=== PATIENT | male | born 1975 | race Caucasian/White ===

== ENCOUNTER 2016-11-10 08:48 | Emergency (ER) | payer OTHER ==
[~2016-11-10] VITALS: Ht 172.7 cm; Wt 74.4 kg
[~2016-11-10 08:48] MED LIST: CLONAZEPAM1 MG PO; FLOMAX0.4 M1 PO; IBUPROFEN800 M1 PO; KETOROLAC TROME10 M1 PO; NEXIUM 40MG40 MG PO; PERCOCET 5-3251 EACH PO; TYLENOL WITH C1 EACH PO; ZOFRAN4 M2 PO
--- NOTE | 2016-11-10 09:19 | ED GENERAL ADULT ---
History of Present Illness General Chief Complaint: General Adult Stated Complaint: RECENTLY PUT ON XARELTO HIT HEAD THIS MORN Source: patient Exam Limitations: no limitations Vital Signs & Intake/Output Vital Signs & Intake/Output Vital Signs Date Time Temp Pulse Resp B/P Pulse O2 O2 Flow FiO2 Ox Delivery Rate 11/10 0957 98.0 70 18 138/89 96 Room Air 11/10 0855 97.0 66 18 139/87 99 Room Air Allergies Coded Allergies: cephalexin (Mild, RASH 02/20/16) Reconcile Medications Clonazepam 1 MG TABLET 1 TAB PO QPM PRN ANXIETY (Reported) Esomeprazole (Nexium) 40 MG CAPSULE.DR 1 CAP PO DAILY GI (Reported) Ibuprofen 800 MG TABLET 1 TAB PO Q6PRN PRN pain Ketorolac Tromethamine 10 MG TABLET 1 TAB PO TID PRN PAIN Ondansetron HCl (Zofran) 4 MG TABLET 1 TAB PO Q6-8P PRN NAUSEA Ondansetron HCl (Zofran) 4 MG TABLET 1 TAB PO Q6-8P PRN NAUSEA Oxycodone HCl/Acetaminophen (Percocet 5-325 MG Tablet) 1 EACH TABLET 1-2 TAB PO Q6P PRN severe pain Tamsulosin HCl (Flomax) 0.4 MG CAP.ER.24H 1 CAP PO DAILY kidney stone Tylenol With Codeine (Tylenol With Codeine #3 Tablet) 300 MG-30 MG TABLET 1 TAB PO BIDP PRN PAIN Triage Note: C/O SLIGHT DIZZINESS SINCE THIS AM, STATES HE SCRAPED THE TOP OF HIS HEAD ON A CLOTH CAR ROOF PRIOR. STARTED ON XARALTO 6 DAYS AGO FOR R SIDED PE. Triage Nurses Notes Reviewed? yes HPI: Patient is a 41 year old male presents complaining of head injury. Patient was getting out of his car when he struck the top of his head. Injury occurred just prior to arrival. Headache is 4/10, bandlike headache. Patient is on Xarelto, concerned for internal bleeding. Patient denies loss of consciousness, numbness , weakness, vomiting. Past History Travel History Traveled to [place] past 21 day No Medical History Any Pertinent Medical History? 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 No Review of Systems Review of Systems Constitutional: Denies: chills, fever. EENTM: Denies: blurred vision, visual changes, eye pain. Respiratory: Reports: no symptoms. Cardiovascular: Denies: syncope. GI: Denies: abdominal pain, vomiting. Genitourinary: Reports: no symptoms. Musculoskeletal: Denies: back pain, neck pain. Skin: Reports: no symptoms. Neurological/Psychological: Reports: see HPI, anxiety, headache. Denies: numbness, paresthesia, unable to move lower ext, unable to move upper ext. Hematologic/Endocrine: Denies: bleeding. Immunologic/Allergic: Denies: splenectomy. Physical Exam Physical Exam General Appearance: well developed/nourished, alert, awake Head: 2 cm abrasion to the superior scalp. Mild tenderness. No palpable step- offs or deformities. Eyes: Bilateral: normal appearance, PERRL, EOMI. Ears, Nose, Throat: hearing grossly normal Neck: normal inspection, supple, full range of motion, no midline tenderness Respiratory: normal breath sounds, chest non-tender, no respiratory distress, lungs clear Cardiovascular: regular rate/rhythm Back: normal inspection, normal range of motion Extremities: normal inspection, normal capillary refill, normal range of motion, no edema Neurologic/Psych: no motor/sensory deficits, awake, alert, oriented x 3, normal gait, normal mood/affect, circuit rider II-XII nml as tested Skin: normal color, warm/dry Core Measures ACS in differential dx? No CVA/TIA Diagnosis: No Severe Sepsis Present: No Septic Shock Present: No Progress Differential Diagnoses I considered the following diagnoses in my evaluation of the patient: Head contusion, concussion, intracranial bleed, skull fracture Plan of Care: Orders Procedure Date/time Status Telemetry/Business Process Lead 11/10 0823 Active EKG 11/10 0857 Active 11/10/2016 10:16:12 AM: Results of head CT scan discussed with patient. No acute neurologic abnormalities. Patient appears stable for discharge. (JOSE CRUZ,ADI) Diagnostic Imaging: Viewed by Me: CT Scan. Discussed w/RAD: CT Scan. Radiology Impression: PATIENT: CATRACHO DIAZ PRESENT AGE: 41 PATIENT ACCOUNT NO: [id number] : 75 LOCATION: [facility] ORDERING PHYSICIAN: ADI CRUZ SERVICE DATE: 11/10/16 EXAM TYPE: CAT - CT HEAD WO IV CONTRAST EXAMINATION: CT HEAD WITHOUT CONTRAST CLINICAL INFORMATION: Struck head, on Xarelto. Headache and dizziness. Assess for bleed. COMPARISON: CT scan of the head 01/17/2011. TECHNIQUE: Contiguous axial imaging was performed from the skull base to vertex without intravenous administration of contrast. DLP: 600.71 mGy-cm FINDINGS: There is no evidence of acute intracranial hemorrhage or territorial infarction. No abnormal mass effect or midline shift is seen. Florian to white matter differentiation is well preserved. No extra-axial fluid collections are identified. The ventricles are normal in size. There is no abnormal attenuation within the brain parenchyma. The osseous structures and soft tissues are normal. The mastoid air cells and visualized portions of the paranasal sinuses are well aerated. The nasal septum is deviated to the right and there is a right-sided bony nasal septal spur. IMPRESSION: 1. There are no acute bleeds or infarcts. 2. There are no fractures or large scalp contusions. 3. The mastoid air cells and visualized paranasal sinuses are well-aerated. DICTATED BY: LUIGI MCNAMARA MD DATE/TIME DICTATED:1001 DIE CLEANER:SUNIL DATE/TIME TRANSCRIBED:11/10/161001 CONFIDENTIAL, DO NOT COPY WITHOUT APPROPRIATE AUTHORIZATION. <Electronically signed in Other Vendor System> SIGNED BY: LUIGI MCNAMARA MD 11/10/16 1009 Initial ED EKG: sinus bradycardia 46 bpm normal axis, normal intervals, no acute ST/T-wave abnormalities. Slower rate than previous EKG Rhythm Strip: normal sinus rhythm (rate in the 60s) Departure Departure Time of Disposition: 1014 Disposition: HOME OR SELF CARE Condition: Stable Clinical Impression Primary Impression: Head contusion Qualifiers: Encounter type: initial encounter Contusion of head detail: scalp Qualified Code: S00.03XA - Contusion of scalp, initial encounter Referrals: ELISHA SAVAGE MD (PCP/Family) Additional Instructions: Take Tylenol as directed for pain. Return to the emergency department if confusion, lethargy, vomiting, numbness, weakness, pain significantly worsening, or worsening of symptoms. Departure Forms: Customer Survey General Discharge Information Critical Care Note Critical Care Note Critical Care Time: non-applicable
[2016-11-10 09:57] VITALS: BP 138/89
--- NOTE | 2016-11-10 10:09 | CT SCAN REPORT ---
EXAMINATION: CT HEAD WITHOUT CONTRAST CLINICAL INFORMATION: Struck head, on Xarelto. Headache and dizziness. Assess for bleed. COMPARISON: CT scan of the head 01/17/2011. TECHNIQUE: Contiguous axial imaging was performed from the skull base to vertex without intravenous administration of contrast. DLP: 600.71 mGy-cm FINDINGS: There is no evidence of acute intracranial hemorrhage or territorial infarction. No abnormal mass effect or midline shift is seen. Florian to white matter differentiation is well preserved. No extra-axial fluid collections are identified. The ventricles are normal in size. There is no abnormal attenuation within the brain parenchyma. The osseous structures and soft tissues are normal. The mastoid air cells and visualized portions of the paranasal sinuses are well aerated. The nasal septum is deviated to the right and there is a right-sided bony nasal septal spur. IMPRESSION: 1. There are no acute bleeds or infarcts. 2. There are no fractures or large scalp contusions. 3. The mastoid air cells and visualized paranasal sinuses are well-aerated.
== END 2016-11-10 10:21 ==
LOC: ERH 08:48
DX: S00.93XA Contusion of unspecified part of head, initial encounter (principal); W22.8XXA Striking against or struck by other objects, initial encounter; Y92.9 Unspecified place or not applicable; Y93.9 Activity, unspecified
CPT/HCPCS: 93005; 93010

== ENCOUNTER 2016-11-14 19:04 | Emergency (ER) | payer OTHER ==
[~2016-11-14] VITALS: Ht 172.7 cm; Wt 74.4 kg
[2016-11-14 19:11] VITALS: BP 125/81
--- NOTE | 2016-11-14 19:31 | ED HEADACHE COMPLAINT ---
History of Present Illness General Chief Complaint: Headache Stated Complaint: CHILEL, IS ON BLOOD THINNER Source: patient, old records Exam Limitations: no limitations Vital Signs & Intake/Output Vital Signs & Intake/Output ED Intake and Output 11/15 0000 11/14 1200 Intake Total Output Total Balance Patient 164 lb Weight Allergies Coded Allergies: cephalexin (Mild, RASH 02/20/16) Reconcile Medications Clonazepam 1 MG TABLET 1 TAB PO QPM PRN ANXIETY (Reported) Esomeprazole (Nexium) 40 MG CAPSULE.DR 1 CAP PO DAILY GI (Reported) Ibuprofen 800 MG TABLET 1 TAB PO Q6PRN PRN pain Ketorolac Tromethamine 10 MG TABLET 1 TAB PO TID PRN PAIN Ondansetron HCl (Zofran) 4 MG TABLET 1 TAB PO Q6-8P PRN NAUSEA Ondansetron HCl (Zofran) 4 MG TABLET 1 TAB PO Q6-8P PRN NAUSEA Oxycodone HCl/Acetaminophen (Percocet 5-325 MG Tablet) 1 EACH TABLET 1-2 TAB PO Q6P PRN severe pain Tamsulosin HCl (Flomax) 0.4 MG CAP.ER.24H 1 CAP PO DAILY kidney stone Tylenol With Codeine (Tylenol With Codeine #3 Tablet) 300 MG-30 MG TABLET 1 TAB PO BIDP PRN PAIN Triage Note: PT STATES THAT HE IS ON THINNERS AND THAT HE BUMPED THE TOP OF HIS HEAD ON DECK, DENIES LOC, STATES THAT HE HAS 3/10 PAIN TO AREA. NO LACERATION NOTED Triage Nurses Notes Reviewed? yes Onset: Abrupt Duration: hour(s): (1.5) Timing: single episode today Quality/Severity: mild Head Injury Location: TOP OF HEAD No Modifying Factors: none HPI: 41-year-old male presents to the ER with chief complaint of right-sided headache. He states he was on his deck and had a baseball And Was Bending over and As He Was Standing up He Hit the Side Rail. Denies Hitting His Head Hard. No Loss of Consciousness. Denies Any Dizziness Nausea Vomiting or Confusion. He States Because He Is on xarelto and he didn't Know He Should Come into the Hospital. He Was Seen Here on Wednesday after He Had His Head on the Side of the Car Door and Had a CAT Scan Which Was Negative That day. He States He Was Just Concerned and Wanted to Make Sure Everything Was Okay. No Other Symptoms. Past History Travel History Traveled to [place] past 21 day No Medical History Any Pertinent Medical History? 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 No Review of Systems Review of Systems Constitutional: Denies: chills, fever. Eyes: Denies: blurred vision, decreased acuity. Ears, Nose, Throat, Mouth: Reports: no symptoms. Respiratory: Denies: cough, short of breath. Cardiovascular: Denies: chest pain. Gastrointestinal/Abdominal: Reports: no symptoms. Genitourinary: Reports: no symptoms. Musculoskeletal: Reports: no symptoms. Skin: Reports: no symptoms. Neurological/Psychological: Reports: anxiety, headache. Denies: ataxia. Hematologic/Endocrine: Denies: bruising, bleeding, polyuria, other. Endocrine: Reports: no symptoms. Immunologic/Allergic: Denies: splenectomy. All Other Systems: Reviewed and Negative Physical Exam Physical Exam General Appearance: well developed/nourished, alert, awake, anxious, mild distress Head: atraumatic, normal appearance, NO BRUISING, STEP-OFF, CREPITUS Eyes: Bilateral: normal appearance, PERRL, EOMI. Ears, Nose, Throat: normal pharynx, normal ENT inspection, hearing grossly normal Neck: normal inspection, supple, full range of motion Respiratory: normal breath sounds, chest non-tender, no respiratory distress Cardiovascular: regular rate/rhythm Gastrointestinal: normal bowel sounds, soft, non-tender Psychiatric: awake, alert, oriented x 3 Cranial Nerves: normal hearing, normal speech, PERRL Coordination/Gait: normal finger to nose, normal gait Motor/Sensory: no motor/sensory deficits Core Measures Severe Sepsis Present: No Septic Shock Present: No Progress Differential Diagnosis: carotid dissection (HEAD J), HEAD CONTUSION, ANXIETY Plan of Care: Neuro examination intact. Patient given reassurance. No indication for imaging at this time. Head injury instructions given. Departure Departure Time of Disposition: 1936 Disposition: HOME OR SELF CARE Condition: Stable Clinical Impression Primary Impression: Headache Referrals: ELISHA SAVAGE MD (PCP/Family) Additional Instructions: You may take Tylenol as needed for headache. Please make note of the symptoms with which to return on your discharge instructions. Departure Forms: Customer Survey General Discharge Information
== END 2016-11-14 19:44 ==
LOC: ERH 19:04
DX: R51 Headache (principal)

== ENCOUNTER 2016-11-27 17:24 | Emergency (ER) | payer OTHER ==
[2016-11-27 18:11] VITALS: BP 129/81
--- NOTE | 2016-11-27 19:04 | ULTRASOUND REPORT ---
EXAMINATION: US TRIPLEX OF LOWER EXTREMITIES, BILATERAL CLINICAL INFORMATION: Bilateral lower extremity pain. COMPARISON: None TECHNIQUE: Color-flow triplex imaging with spectral analysis and compression Doppler were performed on the lower extremities. FINDINGS: Respiratory variation, normal compression and augmented flow are noted throughout the lower extremities. The visualized common femoral vein, superficial femoral vein, profunda femoral vein, popliteal vein and midcalf peroneal and posterior tibial venous segments show no evidence of deep venous thrombosis. There is no Joiner's cyst. IMPRESSION: Normal triplex scan without evidence of deep venous thrombosis involving the lower extremities.
--- NOTE | 2016-11-27 19:36 | ED UPPER/LOWER EXTREMITY COMPL ---
History of Present Illness General Chief Complaint: Lower Extremity Problems Stated Complaint: L CALF PAIN Source: patient Exam Limitations: no limitations Vital Signs & Intake/Output Vital Signs & Intake/Output Vital Signs Date Time Temp Pulse Resp B/P B/P Pulse O2 O2 Flow FiO2 Mean Ox Delivery Rate 11/27 1939 56 18 99 Room Air 11/27 1811 98.8 58 16 129/81 97 Room Air Allergies Coded Allergies: cephalexin (Mild, RASH 02/20/16) Reconcile Medications Clonazepam 1 MG TABLET 1 TAB PO QPM PRN ANXIETY (Reported) Esomeprazole (Nexium) 40 MG CAPSULE.DR 1 CAP PO DAILY GI (Reported) Ibuprofen 800 MG TABLET 1 TAB PO Q6PRN PRN pain Ketorolac Tromethamine 10 MG TABLET 1 TAB PO TID PRN PAIN Ondansetron HCl (Zofran) 4 MG TABLET 1 TAB PO Q6-8P PRN NAUSEA Ondansetron HCl (Zofran) 4 MG TABLET 1 TAB PO Q6-8P PRN NAUSEA Oxycodone HCl/Acetaminophen (Percocet 5-325 MG Tablet) 1 EACH TABLET 1-2 TAB PO Q6P PRN severe pain Tamsulosin HCl (Flomax) 0.4 MG CAP.ER.24H 1 CAP PO DAILY kidney stone Tylenol With Codeine (Tylenol With Codeine #3 Tablet) 300 MG-30 MG TABLET 1 TAB PO BIDP PRN PAIN Triage Note: TRIAGE: ON XARELTO 20MG FOR PE X1 MONTH. NEW ONSET L CALF PAIN SINCE YESTERDAY. NO REDNESS OR SWELLING NOTED. PT REPORTS PAIN WITH WALKING, PAIN 4/10. HAD BILAT LOWER EXT U/S TWO WEEKS AGO WITHOUT EVIDENCE OF DVT. DENIES SOB. DENIES IVC FILTER. PT ASSISTED TO WHEELCHAIR AND U/S ORDERED PER NANCY VENTURA Triage Nurses Notes Reviewed? yes Onset: Abrupt Duration: hour(s): Timing: recent history Severity: mild Pain/Injury Location: Left: Leg. Method of Injury: unknown Modifying Factors: Worsens With: movement. Associated Symptoms: left calf pain. No swelling HPI: 41 yo gentleman h/o PE diagnosed 1 month ago, on Xarelto, presents with left calf pain for the past 1-2 days. "It hurts when I press on the muscle." He notes no significant swelling, no chest discomfort or dyspnea. Past History Travel History Traveled to [place] past 21 day No Medical History Any Pertinent Medical History? 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 No Review of Systems Review of Systems Constitutional: Reports: no symptoms. EENTM: Reports: no symptoms. Respiratory: Reports: no symptoms. Cardiovascular: Reports: no symptoms. Gastrointestinal/Abdominal: Reports: no symptoms. Genitourinary: Reports: no symptoms. Musculoskeletal: Reports: no symptoms. Skin: Reports: no symptoms. Neurological/Psychological: Reports: no symptoms. Hematologic/Endocrine: Reports: no symptoms. Immunological: Reports: no symptoms. All Other Systems: Reviewed and Negative Physical Exam Physical Exam General Appearance: well developed/nourished, mild distress Head: atraumatic Eyes: Bilateral: PERRL, EOMI. Ears, Nose, Throat: normal pharynx, normal ENT inspection, hearing grossly normal Neck: normal inspection, supple Cardiovascular/Respiratory: regular rate/rhythm Back: normal inspection Leg Left: left calf with mild tenderness in the proximal muscle. No swelling. No edema. No sign of infection or inflammation. Both legs are symmetrical. Normal distal pulses. Light touch and range of motion is intact bilaterally. Skin: intact, normal color, warm/dry Lymphatic: no anterior cervical diamond Progress Differential Diagnosis: DVT versus muscle strain versus other Plan of Care: Ultrasound negative for DVT. My clinical suspicion is low for DVT given that he is artery on Xarelto. Discussed at length with patient. Patient safe to follow -up with pmd Diagnostic Imaging: Viewed by Me: Ultrasound. Discussed w/RAD: Ultrasound. Radiology Impression: Doppler ultrasound-no DVT, full report below Comments: PATIENT: CATRACHO DIAZ PRESENT AGE: 41 PATIENT ACCOUNT NO: [id number] : 75 LOCATION: [facility] ORDERING PHYSICIAN: UMBERTO SMITH DO (TBS) SERVICE DATE: 11/27/16 EXAM TYPE: US - US-EXT BILAT VENOUS DOPPLER EXAMINATION: US TRIPLEX OF LOWER EXTREMITIES, BILATERAL CLINICAL INFORMATION: Bilateral lower extremity pain. COMPARISON: None TECHNIQUE: Color-flow triplex imaging with spectral analysis and compression Doppler were performed on the lower extremities. FINDINGS: Respiratory variation, normal compression and augmented flow are noted throughout the lower extremities. The visualized common femoral vein, superficial femoral vein, profunda femoral vein, popliteal vein and midcalf peroneal and posterior tibial venous segments show no evidence of deep venous thrombosis. There is no Joiner's cyst. IMPRESSION: Normal triplex scan without evidence of deep venous thrombosis involving the lower extremities. DICTATED BY: ERICK BALLARD MD DATE/TIME DICTATED:11/27/161899 ENGRAVER:SUNIL DATE/TIME TRANSCRIBED:11/27/161899 CONFIDENTIAL, DO NOT COPY WITHOUT APPROPRIATE AUTHORIZATION. <Electronically signed in Other Vendor System> SIGNED BY: ERICK BALLARD MD 11/27/161903 Departure Departure Disposition: HOME OR SELF CARE Condition: Stable Clinical Impression Primary Impression: Pain of left calf Referrals: ELISHA SAVAGE MD (PCP/Family) Additional Instructions: follow up with your primary care doctor on wednesday Departure Forms: Customer Survey General Discharge Information
== END 2016-11-27 19:39 ==
LOC: ERH 17:24
DX: M79.662 Pain in left lower leg (principal)
CPT/HCPCS: 93970

== ENCOUNTER 2016-12-10 17:28 | Emergency (ER) | payer OTHER ==
[~2016-12-10] VITALS: Ht 170.2 cm; Wt 76.2 kg
[2016-12-10 17:30] VITALS: BP 145/98
== END 2016-12-10 19:57 | disposition admitted as inpatient to this hospital (09) ==
LOC: ERH 17:28
DX: M79.661 Pain in right lower leg (principal)

== ENCOUNTER 2016-12-13 11:17 | Emergency (ER) | payer OTHER ==
[~2016-12-13] VITALS: Ht 172.7 cm; Wt 76.2 kg
--- NOTE | 2016-12-13 12:10 | ED GENERAL ADULT ---
History of Present Illness General Chief Complaint: General Adult Stated Complaint: LOWER LEG PAIN BEING TREATED FOR PE Source: patient, old records Exam Limitations: no limitations Vital Signs & Intake/Output Vital Signs & Intake/Output Vital Signs Date Time Temp Pulse Resp B/P B/P Pulse O2 O2 Flow FiO2 Mean Ox Delivery Rate 12/13 1334 98.2 70 18 118/78 100 Room Air 12/13 1121 98.4 69 16 119/81 99 Room Air Allergies Coded Allergies: cephalexin (Mild, RASH 02/20/16) Reconcile Medications Clonazepam 1 MG TABLET 1 TAB PO QPM PRN ANXIETY (Reported) Esomeprazole (Nexium) 40 MG CAPSULE.DR 1 CAP PO DAILY GI (Reported) Ibuprofen 800 MG TABLET 1 TAB PO Q6PRN PRN pain Ketorolac Tromethamine 10 MG TABLET 1 TAB PO TID PRN PAIN Ondansetron HCl (Zofran) 4 MG TABLET 1 TAB PO Q6-8P PRN NAUSEA Ondansetron HCl (Zofran) 4 MG TABLET 1 TAB PO Q6-8P PRN NAUSEA Oxycodone HCl/Acetaminophen (Percocet 5-325 MG Tablet) 1 EACH TABLET 1-2 TAB PO Q6P PRN severe pain Ranitidine HCl (Zantac) 150 MG TABLET 1 TAB PO BID acid reflux Tamsulosin HCl (Flomax) 0.4 MG CAP.ER.24H 1 CAP PO DAILY kidney stone Tylenol With Codeine (Tylenol With Codeine #3 Tablet) 300 MG-30 MG TABLET 1 TAB PO BIDP PRN PAIN Triage Note: PT HAS BEEN TREATED FOR PE FOR MONTH STATES HE HAS WOULD LIKE HIS RIGHT LOWER EXT. LOOKED AT. PT HAVING BACK PAIN UPPER GI PAIN. PT IS CURRENTLY TAKING XERALTO. Triage Nurses Notes Reviewed? yes Onset: Abrupt Duration: week(s):, intermittent Timing: recent history Injury Environment: home No Modifying Factors: none HPI: 41-year-old male comes into emergency room for multiple complaints. Patient reports that he is here primarily today for abdominal pain and right calf pain. Patient was started on Xarelto for a pulmonary embolism little over a month ago. He has a history of gastritis and ulcers. Patient has been on omeprazole for 8 -9 years. He reports he's been experiencing epigastric pain. Sharp. Associated nausea. Radiates up into his chest into his back. He denies any black stools or blood in his stool that he notices. Denies any fever or chills. Patient also complains of right calf pain. He reports that he had normal ultrasounds of his bilateral lower extremities after he was diagnosed with the blood clot in his lung. He denies any other associated symptoms. Denies any other traumas. (LING CHÁVEZ) Past History Travel History Traveled to [place] past 21 day No Medical History Any Pertinent Medical History? see below for history Neurological: NONE EENT: NONE Cardiovascular: bradycardia Respiratory: pulmonary embolism, pneumonia Gastrointestinal: GERD, irritable bowel syndrome, peptic ulcer disease Hepatic: "DYSKINESIA GALLBLADDER" Renal: nephrolithiasis Musculoskeletal: NONE Psychiatric: NONE Endocrine: NONE Blood Disorders: NONE Cancer(s): NONE LEVERMAN/Reproductive: NONE Surgical History Surgical History: non-contributory Psychosocial History What is your primary language Persian Tobacco Use: Never used ETOH Use: denies use Illicit Drug Use: denies illicit drug use Family History Family History, If Any: Relation not specified for: DVT FHx: pulmonary embolism Hx Contributory? No (LING CHÁVEZ) Review of Systems Review of Systems Constitutional: Reports: no symptoms. EENTM: Reports: no symptoms. Respiratory: Reports: no symptoms. Cardiovascular: Reports: no symptoms. GI: Reports: see HPI. Genitourinary: Reports: no symptoms. Musculoskeletal: Reports: see HPI. Skin: Reports: no symptoms. Neurological/Psychological: Reports: no symptoms. Hematologic/Endocrine: Reports: no symptoms. Immunologic/Allergic: Reports: no symptoms. All Other Systems: Reviewed and Negative (LING CHÁVEZ) Physical Exam Physical Exam General Appearance: well developed/nourished, alert, awake, anxious Head: atraumatic, normal appearance Eyes: Bilateral: normal appearance, EOMI. Ears, Nose, Throat: normal pharynx, normal ENT inspection, hearing grossly normal Neck: normal inspection, full range of motion Respiratory: normal breath sounds, no respiratory distress Cardiovascular: regular rate/rhythm Gastrointestinal: soft Back: normal inspection, normal range of motion Extremities: normal inspection, normal range of motion, no edema, right calf pain Neurologic/Psych: awake, alert, oriented x 3, normal gait, normal mood/affect Skin: intact, normal color Core Measures ACS in differential dx? No CVA/TIA Diagnosis: No Severe Sepsis Present: No Septic Shock Present: No (LING CHÁVEZ) Progress Differential Diagnoses I considered the following diagnoses in my evaluation of the patient: Gastritis , peptic ulcer disease, pancreatitis, cholecystitis, [place], PE, aortic dissection, DVT, cellulitis, muscle strain, Plan of Care: Orders Procedure Date/time Status TROPONIN LEVEL 12/13 1152 Complete LIPASE 12/13 1152 Complete COMPREHENSIVE METABOLIC PANEL 12/13 1152 Complete CBC WITHOUT DIFFERENTIAL 12/13 1152 Complete AMYLASE 12/13 1152 Complete EKG 12/13 1152 Active Laboratory Tests 12/13/16 1215: Anion Gap 11, Estimated GFR > 60, BUN/Creatinine Ratio 20.0, Glucose 90, Calcium 9.2, Total Bilirubin 0.5, AST 22, ALT 33, Alkaline Phosphatase 60, Troponin I < 0.01, Total Protein 6.3, Albumin 4.0, Globulin 2.3, Albumin/Globulin Ratio 1.7, Amylase 70, Lipase 66, CBC w Diff NO MAN DIFF REQ, RBC 5.00, MCV 90.1, MCH 30.7, RDW 12.9, MPV 8.9, Gran % 68.9, Lymphocytes % 24.2, Monocytes % 6.1, Eosinophils % 0.4, Basophils % 0.4, Absolute Granulocytes 4.7, Absolute Lymphocytes 1.6, Absolute Monocytes 0.4, Absolute Eosinophils 0, Absolute Basophils 0, PUBS MCHC 34.1 Diagnostic Imaging: Viewed by Me: Ultrasound. Discussed w/RAD: Ultrasound. Radiology Impression: SERVICE DATE: 12/13/16 EXAM TYPE: US - US-LIMITED ABDOMEN EXAMINATION: US ABDOMEN LIMITED CLINICAL INFORMATION: Right upper quadrant/epigastric pain.. COMPARISON: CT abdomen from 07/28/2016. TECHNIQUE: Real-time imaging of the right upper quadrant abdominal viscera. FINDINGS: PANCREAS: The pancreas is partially obscured by bowel gas. There visualized portions of the pancreatic head, neck and body are normal. No pancreatic ductal dilatation. LIVER: Normal. The liver demonstrates normal size, contour and echogenicity. No focal lesion or intrahepatic biliary duct dilatation. GALLBLADDER: Normal. The gallbladder is physiologically distended without evidence of stones, sludge, polyps, wall thickening or pericholecystic fluid. COMMON DUCT: The visualized common hepatic duct is normal, measuring 0.3 cm diameter. Common bile duct cannot be visualized. RIGHT KIDNEY: Normal. No hydronephrosis. No renal calculi or focal parenchymal lesions. The kidney measures 10.4 cm in maximum dimension. FREE FLUID: None. IMPRESSION: Normal findings in the visualized right upper quadrant of the abdomen. No evidence of cholelithiasis or cholecystitis. DICTATED BY: CHELSEA FLORENCE MD DATE/TIME DICTATED:12/13/161321, EXAM TYPE: US - US-EXT BILAT VENOUS DOPPLER EXAMINATION: US TRIPLEX OF LOWER EXTREMITIES, BILATERAL CLINICAL INFORMATION: Calf pain. History of pulmonary embolism. COMPARISON: 11/27/2016. TECHNIQUE: Color-flow triplex imaging with spectral analysis and compression Doppler were performed on the lower extremities. FINDINGS: The common femoral vein is compressible and exhibits a normal phasic waveform, bilaterally; this suggests that the iliac veins are widely patent above. Within each proximal thigh, the visualized profunda femoris vein is patent. The visualized greater saphenous vein and saphenofemoral junction are normal, bilaterally. Superficial femoral vein is patent in the proximal, mid and distal aspect of each thigh. Popliteal vein appears normal to the level of the trifurcation, bilaterally, and the visualized calf veins are unremarkable. No evidence of Joiner's cyst. IMPRESSION: No evidence of deep vein thrombosis in either lower extremity. DICTATED BY: CHELSEA FLORENCE MD DATE/TIME DICTATED:12/13/161319 Initial ED EKG: normal intervals, normal p-waves, normal QRS complex, normal sinus rhythm, rate (62) Comments: 12/13/2016 2:30:57 PM No acute findings and workup. The emergency room. Patient clinically looks well. Nontoxic-appearing. In no apparent distress. Follow-up with primary care doctor. Patient understands and agrees with plan of care. Case discussed with Dr. Morales. (LING CHÁVEZ) Departure Departure Disposition: HOME OR SELF CARE Condition: Stable Clinical Impression Primary Impression: Abdominal pain Referrals: ELISHA SAVAGE MD (PCP/Family) Additional Instructions: Take zantac as prescribed. Follow-up with your primary care doctor. Return if any concerns worsening symptoms. Please go over all results of today's visit with your primary care doctor. Contact your primary care doctor to let them know you were here in the emergency room. There may be nonspecific findings which may not be related to your visit today here in the emergency room but may require further evaluation and chronic monitoring by your primary care doctor. If you had a laceration today the chance of foreign body always remains. You should follow-up with your primary care doctor for recheck in 3-5 days for a wound check. If you had an x-ray done there is a chance that a fracture could have been missed on initial read and you should follow-up with your primary care doctor for repeat x-rays if symptoms persist. If your blood pressure was elevated here in the emergency room please have rechecked by her primary care doctor within the next 48 hours by your primary care doctor. If you were prescribed a narcotic here in the emergency room or any type of controlled substances you're not allowed to drive while taking this medication or operate any type of heavy machinery. Narcotics can make you feel lightheaded dizziness nausea and can cause constipation. You may need to pickling operator a stool softener. Thank you for choosing [facility] emergency room. Please return to the emergency room immediately if you have any other concerns worsening of symptoms. Departure Forms: Customer Survey General Discharge Information Prescriptions: Current Visit Scripts Ranitidine HCl (Zantac) 1 TAB PO BID #60 TAB (LING CHÁVEZ) PA/C 40A CREW CHIEF Co-Sign Statement Statement: ED Attending supervision documentation- [] I saw and evaluated the patient. I have also reviewed all the pertinent lab results and diagnostic results. I agree with the findings and the plan of care as documented in the PA's/C 40A CREW CHIEF's documentation. [X] I have reviewed the ED Record and agree with the PA's/C 40A CREW CHIEF's documentation. [] Additions or exceptions (if any) to the PAs/C 40A CREW CHIEF's note and plan are summarized below: [] (MANNY VEE,FRED Mclean) Critical Care Note Critical Care Note Critical Care Time: non-applicable (LING CHÁVEZ)
[2016-12-13 12:24] LABS: ABSOLUTE BASOPHIL COUNT 0 /CUMM (0.0-0.2); ABSOLUTE EOSINOPHIL COUNT 0 /CUMM (0.0-0.7); ABSOLUTE GRANULOCYTE CT 4.7 /CUMM (1.4-6.5); ABSOLUTE LYMPH COUNT 1.6 /CUMM (1.2-3.4); ABSOLUTE MONOCYTE COUNT 0.4 /CUMM (0.10-0.60); BASOPHIL % 0.4 % (0.0-2.0); EOSINOPHIL % 0.4 % (0-5); GRANULOCYTE % 68.9 % (42.2-75.2); HEMATOCRIT 45.1 % (42-52); MEAN CORPUSCULAR HGB 30.7 PG (27.0-31.0); MEAN CORPUSCULAR HGB CONC 34.1 G/DL (33.0-37.0); MEAN CORPUSCULAR VOLUME 90.1 FL (80.0-94.0); MEAN PLATELET VOLUME 8.9 FL (7.4-10.4); PLATELET COUNT 175 /CUMM (130-400); RBC DISTRIBUTION WIDTH 12.9 % (11.5-14.5); WHITE BLOOD CELL COUNT 6.8 /CUMM (4.8-10.8)
--- NOTE | 2016-12-13 13:26 | ULTRASOUND REPORT ---
EXAMINATION: US TRIPLEX OF LOWER EXTREMITIES, BILATERAL CLINICAL INFORMATION: Calf pain. History of pulmonary embolism. COMPARISON: 11/27/2016. TECHNIQUE: Color-flow triplex imaging with spectral analysis and compression Doppler were performed on the lower extremities. FINDINGS: The common femoral vein is compressible and exhibits a normal phasic waveform, bilaterally; this suggests that the iliac veins are widely patent above. Within each proximal thigh, the visualized profunda femoris vein is patent. The visualized greater saphenous vein and saphenofemoral junction are normal, bilaterally. Superficial femoral vein is patent in the proximal, mid and distal aspect of each thigh. Popliteal vein appears normal to the level of the trifurcation, bilaterally, and the visualized calf veins are unremarkable. No evidence of Joiner's cyst. IMPRESSION: No evidence of deep vein thrombosis in either lower extremity.
--- NOTE | 2016-12-13 13:28 | ULTRASOUND REPORT ---
EXAMINATION: US ABDOMEN LIMITED CLINICAL INFORMATION: Right upper quadrant/epigastric pain.. COMPARISON: CT abdomen from 07/28/2016. TECHNIQUE: Real-time imaging of the right upper quadrant abdominal viscera. FINDINGS: PANCREAS: The pancreas is partially obscured by bowel gas. There visualized portions of the pancreatic head, neck and body are normal. No pancreatic ductal dilatation. LIVER: Normal. The liver demonstrates normal size, contour and echogenicity. No focal lesion or intrahepatic biliary duct dilatation. GALLBLADDER: Normal. The gallbladder is physiologically distended without evidence of stones, sludge, polyps, wall thickening or pericholecystic fluid. COMMON DUCT: The visualized common hepatic duct is normal, measuring 0.3 cm diameter. Common bile duct cannot be visualized. RIGHT KIDNEY: Normal. No hydronephrosis. No renal calculi or focal parenchymal lesions. The kidney measures 10.4 cm in maximum dimension. FREE FLUID: None. IMPRESSION: Normal findings in the visualized right upper quadrant of the abdomen. No evidence of cholelithiasis or cholecystitis.
[2016-12-13 13:34] VITALS: BP 118/78
[2016-12-13] MEDS ORDERED: ZANTAC150 M1 PO (13:45)
== END 2016-12-13 13:53 ==
LOC: ERH 11:17
PROVIDERS: Physician Assistant Medical
DX: R10.13 Epigastric pain (principal)
CPT/HCPCS: 93005; 93010; 93970

== ENCOUNTER 2017-01-28 07:47 | Emergency (ER) | payer OTHER ==
[~2017-01-28] VITALS: Ht 170.2 cm; Wt 79.4 kg
[~2017-01-28 07:47] MED LIST changes: +CLONAZEPAM1 M2 PO; -CLONAZEPAM1 MG PO; +NEXIUM 24HR22.3 MG PO; -NEXIUM 40MG40 MG PO; +ZANTAC150 M1 PO
--- NOTE | 2017-01-28 08:11 | ED CARDIAC/CP/PALPITATIONS ---
History of Present Illness General Chief Complaint: Dyspnea (COPD, CHF, Other) Stated Complaint: SOB, DX WITH PE IN OCTOBER Source: patient, old records Exam Limitations: no limitations Vital Signs & Intake/Output Vital Signs & Intake/Output Vital Signs Date Time Temp Pulse Resp B/P B/P Pulse O2 O2 Flow FiO2 Mean Ox Delivery Rate 01/28 0931 97.0 56 20 130/70 100 Room Air 01/28 0815 98 Room Air 01/28 0751 97.9 55 16 124/83 99 Room Air Allergies Coded Allergies: cephalexin (Mild, RASH 02/20/16) Reconcile Medications Clonazepam 1 MG TABLET 1 TAB PO BIDP PRN ANXIETY (Reported) Esomeprazole Magnesium (Nexium 24HR) 22.3 MG CAPSULE.DR 1 CAP PO DAILY GI ( Reported) Rivaroxaban (Xarelto) 20 MG TABLET 1 TAB PO QPM BLOOD THINNER (Reported) with food Triage Note: PT STATES HE WAS WATCHING TV AND COULDN'T BREATH STATES HAS HX OF PE AND WAS NOT SURE IF HE WAS HAVING A PANIC ATTACK OR HE HAS A PE. PT STATES HE IS FEELING TIGHTNESS IN HIS CHEST TODAY. PT STATES THE PAIN DOES TRAVEL TO HIS BACK ONCE IN A WHILE. Triage Nurses Notes Reviewed? yes HPI: Last night patient was watching TV when suddenly felt substernal chest tightness and shortness of breath. The symptoms continued throughout the night. Patient took one of his antianxiety medications but the symptoms continued and were still there this morning so decided to come in for evaluation. Patient is concerned because he had her pulmonary emboli back in August. Patient has been on salt percent. The chest tightness is constant and he rates as a 2 out of 10. There is no radiation. There are no aggravating or mitigating factors. Patient denies any orthopnea or dyspnea on exertion. There is no coughing. There is no fevers or chills. Past History Travel History Traveled to [place] past 21 day No Medical History Any Pertinent Medical History? 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 No Review of Systems Review of Systems Constitutional: Reports: no symptoms. EENTM: Reports: no symptoms. Respiratory: Reports: see HPI, short of breath. Cardiovascular: Reports: see HPI, chest pain. GI: Reports: no symptoms. Genitourinary: Reports: no symptoms. Musculoskeletal: Reports: no symptoms. Skin: Reports: no symptoms. Neurological/Psychological: Reports: no symptoms. Hematologic/Endocrine: Reports: no symptoms. Immunologic/Allergic: Reports: no symptoms. All Other Systems: Reviewed and Negative Physical Exam Physical Exam General Appearance: well developed/nourished, alert, awake, anxious, mild distress Head: atraumatic, normal appearance Eyes: Bilateral: PERRL, EOMI. Ears, Nose, Throat: normal pharynx, normal ENT inspection, hearing grossly normal Neck: normal inspection, supple, full range of motion Respiratory: normal breath sounds, chest non-tender, no respiratory distress, lungs clear Cardiovascular: regular rate/rhythm, normal peripheral pulses Gastrointestinal: normal bowel sounds, soft, non-tender, no organomegaly Back: normal inspection, normal range of motion Extremities: normal inspection, normal capillary refill, normal range of motion, no edema Neurologic/Psych: no motor/sensory deficits, awake, alert, oriented x 3, normal gait, normal mood/affect Skin: intact, normal color, warm/dry Lymphatic: no anterior cervical diamond Core Measures ACS in differential dx? Yes ASA ordered for poss ACS? No-ACS ruled out Severe Sepsis Present: No Septic Shock Present: No Progress Differential Diagnosis: AMI, hyperthyroid, musculoskeletal pain, PSVT, pulmonary embolism Plan of Care: Orders Procedure Date/time Status Telemetry/Columnist 01/28 0810 Active TROPONIN LEVEL 01/28 0810 Complete COMPREHENSIVE METABOLIC PANEL 01/28 0810 Complete CBC WITHOUT DIFFERENTIAL 01/28 0810 Complete EKG 01/28 0752 Active Laboratory Tests 01/28/17 0812: Anion Gap 10, Estimated GFR > 60, BUN/Creatinine Ratio 23.3, Glucose 95, Calcium 9.4, Total Bilirubin 0.9, AST 26, ALT 37, Alkaline Phosphatase 54, Troponin I < 0.01, Total Protein 6.5, Albumin 4.4, Globulin 2.1, Albumin/Globulin Ratio 2.1, CBC w Diff NO MAN DIFF REQ, RBC 5.02, MCV 89.9, MCH 30.5, RDW 12.4, MPV 8.6, Gran % 63.2, Lymphocytes % 28.4, Monocytes % 7.2, Eosinophils % 1.0, Basophils % 0.2, Absolute Granulocytes 3.7, Absolute Lymphocytes 1.7, Absolute Monocytes 0.4 , Absolute Eosinophils 0.1, Absolute Basophils 0, PUBS MCHC 33.9 Diagnostic Imaging: Viewed by Me: CT Scan. Discussed w/RAD: CT Scan. Radiology Impression: PATIENT: CATRACHO DIAZ PRESENT AGE: 41 PATIENT ACCOUNT NO: [id number] : 75 LOCATION: [facility] ORDERING PHYSICIAN: FRED BRYANT MD SERVICE DATE: 01/28/17 EXAM TYPE: CAT - CTA CHEST-PULMONARY EMBOLISM EXAMINATION: CT ANGIOGRAM OF THE CHEST WITH CONTRAST (CT PULMONARY ANGIOGRAM FOR PE) CLINICAL INFORMATION: 41-year-old male with chest pain and shortness of breath. History of pulmonary embolism. COMPARISON: Chest CT from 08/01/2012 TECHNIQUE: Prior to contrast administration , noncontrast localization images were obtained. Subsequently, multidetector volumetric imaging was performed from the thoracic inlet to below the diaphragms following the administration of 95 mL Optiray 350 intravenous contrast. No contrast reaction reported. Sagittal, coronal, and MIP oblique sagittal reformatted images were obtained on the CT workstation, uploaded to PACS, and reviewed. Total exam dose-length product 322 mGy-cm FINDINGS: QUALITY OF STUDY/ CONTRAST BOLUS: Satisfactory. PULMONARY ARTERIES: No embolic filling defects in the main, lobar or segmental vessels. THORACIC AORTA: Thoracic aorta is normal in size; no intramural hematoma, aneurysm or dissection. 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 LUNGS AND PLEURA: Trachea and central airways are widely patent and normal in caliber. There is an old, 0.2 cm right upper lobe nodule adjacent to the minor fissure (image 214, series 2). No pulmonary edema, consolidation, pneumothorax or pleural effusion. MEDIASTINUM: Normal heart size. No pericardial effusion. No evidence of septal bowing or right heart strain. The esophagus is unremarkable. Thyroid gland is suboptimally evaluated due to streak artifact produced by iodinated contrast material within the superior vena cava. LYMPHATICS: No pathologic sized axillary, hilar or mediastinal lymph nodes. UPPER ABDOMEN: Unremarkable. No reflux of contrast into the hepatic veins to suggest elevated right heart pressures. OSSEOUS STRUCTURES: No acute or suspicious osseous abnormality. IMPRESSION: No acute cardiopulmonary abnormalities. No evidence of pulmonary embolism. DICTATED BY: CHELSEA FLORENCE MD DATE/TIME DICTATED:01/28/171001 TRAINING INSTRUCTOR:SUNIL DATE/TIME TRANSCRIBED:01/28/171001 CONFIDENTIAL, DO NOT COPY WITHOUT APPROPRIATE AUTHORIZATION. <Electronically signed in Other Vendor System> SIGNED BY: CHELSEA FLORENCE MD 01/28/17 1012 Initial ED EKG: NSR, no ST T wave changes Prior EKG: changed Departure Departure Disposition: HOME OR SELF CARE Condition: Stable Clinical Impression Primary Impression: Chest pain, unspecified Qualifiers: Chest pain type: other chest pain Qualified Code: R07.89 - Other chest pain Referrals: ELISHA SAVAGE MD (PCP/Family) Additional Instructions: RETURN FOR ANY CONCERNS Departure Forms: Customer Survey General Discharge Information Critical Care Note Critical Care Note Critical Care Time: non-applicable
[2017-01-28 08:19] LABS: ABSOLUTE BASOPHIL COUNT 0 /CUMM (0.0-0.2); ABSOLUTE EOSINOPHIL COUNT 0.1 /CUMM (0.0-0.7); ABSOLUTE GRANULOCYTE CT 3.7 /CUMM (1.4-6.5); ABSOLUTE LYMPH COUNT 1.7 /CUMM (1.2-3.4); ABSOLUTE MONOCYTE COUNT 0.4 /CUMM (0.10-0.60); BASOPHIL % 0.2 % (0.0-2.0); GRANULOCYTE % 63.2 % (42.2-75.2); HEMATOCRIT 45.1 % (42-52); MEAN CORPUSCULAR HGB 30.5 PG (27.0-31.0); MEAN CORPUSCULAR HGB CONC 33.9 G/DL (33.0-37.0); MEAN CORPUSCULAR VOLUME 89.9 FL (80.0-94.0); MEAN PLATELET VOLUME 8.6 FL (7.4-10.4); PLATELET COUNT 174 /CUMM (130-400); RBC DISTRIBUTION WIDTH 12.4 % (11.5-14.5); RED BLOOD CELL CT 5.02 /CUMM (4.70-6.10); WHITE BLOOD CELL COUNT 5.9 /CUMM (4.8-10.8)
[2017-01-28] MEDS ORDERED: XARELTO20 M2 PO (08:36)
[2017-01-28 09:31] VITALS: BP 130/70
--- NOTE | 2017-01-28 10:12 | CT SCAN REPORT ---
EXAMINATION: CT ANGIOGRAM OF THE CHEST WITH CONTRAST (CT PULMONARY ANGIOGRAM FOR PE) CLINICAL INFORMATION: 41-year-old male with chest pain and shortness of breath. History of pulmonary embolism. COMPARISON: Chest CT from 08/01/2012 TECHNIQUE: Prior to contrast administration, noncontrast localization images were obtained. Subsequently, multidetector volumetric imaging was performed from the thoracic inlet to below the diaphragms following the administration of 95 mL Optiray 350 intravenous contrast. No contrast reaction reported. Sagittal, coronal, and MIP oblique sagittal reformatted images were obtained on the CT workstation, uploaded to PACS, and reviewed. Total exam dose-length product 322 mGy-cm FINDINGS: QUALITY OF STUDY/CONTRAST BOLUS: Satisfactory. PULMONARY ARTERIES: No embolic filling defects in the main, lobar or segmental vessels. THORACIC AORTA: Thoracic aorta is normal in size; no intramural hematoma, aneurysm or dissection. 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 LUNGS AND PLEURA: Trachea and central airways are widely patent and normal in caliber. There is an old, 0.2 cm right upper lobe nodule adjacent to the minor fissure (image 214, series 2). No pulmonary edema, consolidation, pneumothorax or pleural effusion. MEDIASTINUM: Normal heart size. No pericardial effusion. No evidence of septal bowing or right heart strain. The esophagus is unremarkable. Thyroid gland is suboptimally evaluated due to streak artifact produced by iodinated contrast material within the superior vena cava. LYMPHATICS: No pathologic sized axillary, hilar or mediastinal lymph nodes. UPPER ABDOMEN: Unremarkable. No reflux of contrast into the hepatic veins to suggest elevated right heart pressures. OSSEOUS STRUCTURES: No acute or suspicious osseous abnormality. IMPRESSION: No acute cardiopulmonary abnormalities. No evidence of pulmonary embolism.
== END 2017-01-28 10:29 ==
LOC: ERH 07:47
PROVIDERS: Emergency Medicine
DX: R07.2 Precordial pain (principal)
CPT/HCPCS: 93005; 93010